=== PATIENT | female | born 1985 | race Caucasian/White ===

== ENCOUNTER 2020-09-17 20:55 | Emergency (ER) | payer OTHER, SELFPAY ==
--- NOTE | ~2020-09-17 | CT_ITS ---
EXAMINATION: CT abdomen pelvis w con INDICATION: Right lower quadrant pain TECHNIQUE: Computed tomographic images of the abdomen and pelvis were obtained after the administrati on of 100 cc of Omnipaque 350 intravenous contrast. The dose-length product (DLP) was 1456.79 mGy-cm. Automated exposure control and iterative reconstruction technique were employed. COMPARISON: None available FINDINGS: The lung bases are clear. The heart size is normal. Surgical changes in the stomach likely reflect gastric bypass surgery. The liver, spleen, pancreas, gallbladder, and adrenal glands are norm al. The kidneys are unremarkable. The appendix is not definitely identified however no right lower qu adrant inflammatory change is evident. No pathologically enlarged abdominal or pelvic lymph nodes are identified. There is no free intraperitoneal gas or evidence of bowel obstruction. An IUD is present in expected position. There are multiple small midline ventral hernias containing fat. IMPRESSION: 1. No CT correlate for the patient's symptoms. Reviewed, dictated and finalized at location A.
[2020-09-17 20:57] VITALS: BP 139/97; PULSE 91; RESP 22; TEMP 36.2; O2SAT 100
--- NOTE | 2020-09-17 21:19 | PC.NURSE ---
asked pt for urine sample. pt states she us unable to go at this time and is declining straight catheter.
[2020-09-17 21:37] LABS: Basophils Percent Auto 0.3 % (0.2-1.2); Eosinophils Absolute Auto 0.1 K/mm3 (0-0.3); Eosinophils Percent Auto 1.4 % (0-4.4); Hematocrit 31.8 % (37.0-47.0); Hemoglobin 9.1 g/dL (12.0-15.0); Immature Granulocyte Absolute 0.03 K/mm3 (0.00-0.031); Immature Granulocyte Percent A 0.3 % (0-0.5); Lymphocytes Absolute Auto 2.51 K/mm3 (0.9-3.2); Lymphocytes Percent Auto 26.9 % (18.3-44.2); Mean Corpuscular HGB Conc 28.6 g/dl (32-36); Mean Corpuscular Hemoglobin 20.9 pg (26-34); Mean Corpuscular Volume 72.9 fl (80-100); Mean Platelet Volume 10.3 fl (7.4-10.4); Monocytes Absolute Auto 0.6 K/mm3 (0.1-0.6); Monocytes Percent Auto 6.7 % (2.6-8.5); Neutrophils Percent Auto 64.4 % (45.5-73.1); Platelet Count Result 337 k/mm3 (150-375); Red Blood Count 4.36 M/mm3 (4.2-5.4); Red Cell Distribution Width 15.9 % (11.5-14.5); White Blood Count 9.3 K/mm3 (4.5-10.0)
[2020-09-17] MEDS: SODIUM CHLORIDE 0.9% IV 1,000 ML 999 ML IV CONT (21:45)
[2020-09-17] MEDS: FAMOTIDINE 20 MG/2 ML VIAL IV PUSH (21:46)
[2020-09-17 21:47] LABS: Alanine Aminotransferase 15 U/L (4-35); Alkaline Phosphatase 67 U/L (38-126); Anion Gap 9 mmol/L (8-16); Aspartate Amino Transferase 22 U/L (14-36); Bilirubin,Total 0.3 mg/dL (0.2-1.3); Blood Urea Nitrogen 18 mg/dL (7-17); Calcium 8.8 mg/dL (8.4-10.2); Carbon Dioxide 21 mmol/L (22-30); Chloride 111 mmol/L (98-107); Estimated CRCL calculation 103 ml/min; Estimated Glomerular Filt Rate > 60; Glucose 180 mg/dL (65-110); Lipase 140 U/L (23-300); Sodium 141 mmol/L (137-145)
[2020-09-17 22:01] LABS: Hypochromasia 1+ (NORMAL); Ovalocytes 1+ (NORMAL); Platelet Estimate Adequate (Adequate)
--- NOTE | 2020-09-17 22:01 | ED.GENADULT ---
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 for concern that it may be related to her IUD control she was told this was not the case continues to have the pain presents in no distress has not taken anything for symptom Related Data Home Medications Medication Instructions Recorded Confirmed albuterol sulfate INHALATION 09/17/20 buspirone mg 09/17/20 ferrous sulfate [FeroSul] mg 09/17/20 fluconazole 09/17/20 hydrocodone-acetaminophen 09/17/20 medroxyprogesterone mg IM 09/17/20 metformin mg 09/17/20 naproxen 09/17/20 topiramate 09/17/20 trazodone 09/17/20 venlafaxine mg PO 09/17/20 Allergies Allergy/AdvReac Type Severity Reaction Status Date / Time hydromorphone [From Dilaudid] AdvReac Nausea Verified 09/17/20 21:28 Review of Systems Review of Systems: All systems reviewed & are unremarkable except as noted in HPI and below PMFSH Social History Social History Smoking status: Never smoker Exam Narrative: GENERAL: Well-appearing, well-nourished, and in no acute distress. HEAD: Normocephalic, atraumatic. EYES: PERRLA and EOMI. ENT: Nares clear, no rhinorrhea or epistaxis. CHEST: Clear to auscultation. No respiratory distress. No wheezes rales or rhonchi HEART: Regular rate and rhythm. No murmur heard. Normal peripheral pulses. ABDOMEN: Soft, focal right lower quadrant tenderness to palpation no rebound or guarding no other abnormalities noted, nondistended, normal active bowel sounds. EXTREMITIES: Normal range of motion. No edema. SKIN: Warm, dry, no rash. NEURO: No focal deficits. Alert and oriented x3. Cranial nerves II through XII grossly intact PSYCH: Normal mood and affect. Course Course Emergency Course: Patient presented with right lower quadrant pain for 2 weeks no etiology for symptoms afebrile nontoxic-appearing no high risk changes in the evaluation will be discharged home with outpatient follow-up provided with reasons to return Vital Signs Vital signs: Vital Signs Temperature 97.1 F L 09/17/20 20:57 Pulse Rate 91 09/17/20 20:57 Respiratory Rate 22 H 09/17/20 20:57 Blood Pressure 139/97 H 09/17/20 20:57 Pulse Oximetry 100 09/17/20 20:57 Temperature 97.1 F L 09/17/20 20:57 Pulse Rate 66 09/17/20 22:38 Respiratory Rate 16 09/17/20 22:38 Blood Pressure 143/84 H 09/17/20 22:38 Pulse Oximetry 100 09/17/20 22:38 Medical Decision Making MDM Narrative Medical decision making narrative: Patient with right lower quadrant abdominal pain of uncertain etiology patient will be discharged home with primary care follow-up afebrile nontoxic-appearing no distress no concerning findings on the imaging or blood work felt appropriate for outpatient reevaluation Vital Signs Vital Signs: Vital Signs Temperature 97.1 F L 09/17/20 20:57 Pulse Rate 91 09/17/20 20:57 Respiratory Rate 22 H 09/17/20 20:57 Blood Pressure 139/97 H 09/17/20 20:57 Pulse Oximetry 100 09/17/20 20:57 Temperature 97.1 F L 09/17/20 20:57 Pulse Rate 66 09/17/20 22:38 Respiratory Rate 16 09/17/20 22:38 Blood Pressure 143/84 H 09/17/20 22:38 Pulse Oximetry 100 09/17/20 22:38 Lab Data Result diagrams: 09/17/20 21:30 09/17/20 21:30 Labs: Lab Results 09/17/20 09/17/20 09/17/20 Range/Units 21:30 21:30 22:51 WBC 9.3 (4.5-10.0) K/mm3 RBC 4.36 (4.2-5.4
[2020-09-17 22:38] VITALS: BP 143/84; PULSE 66; RESP 16; O2SAT 100
[2020-09-17 23:07] LABS: Add Urine Microscopic? YES; Appearance Urine Clear (Clear); Bacteria Urine Trace /hpf; Bilirubin Urine Negative (Negative); Blood Urine Negative (Negative); Color Urine Yellow (Yellow); Glucose Urine UA 1+ mg/dL (Negative); Ketones Urine Negative (Negative); Leukocyte Esterase Ur Negative LEU/UL (Negative); Mucus Urine Rare /lpf; Nitrate Urine Negative (Negative); Protein Urine Negative (Negative); RBC Urine 0-2 /hpf (0-2); Squamous Epithelial Cell Urine Occasional /hpf (Few); Urobilinogen Urine Negative mg/dL (<2.0); WBC Urine 0-3 /hpf
--- NOTE | 2020-09-17 23:36 | PC.NURSE ---
called to lab about urine test. lab states they will get the urine running.
[2020-09-17 23:38] LABS: Specific Grav Ur 1.035 (1.001-1.035)
[2020-09-18 00:23] VITALS: BP 132/68; PULSE 92; RESP 17; O2SAT 100
== END 2020-09-18 00:26 | disposition home or self-care (01) ==
PROVIDERS: Emergency Provider Emergency Medicine; PCP Family Medicine
DX: R10.31 Right lower quadrant pain (principal); Z97.5 Presence of (intrauterine) contraceptive device
CPT/HCPCS: 36415; 74177; 80053; 81001; 81025; 83690; 85025; 96361; 96365; 96375; 99284; J0131; J7030; Q9967

== ENCOUNTER 2020-10-13 18:25 | Emergency (ER) | payer OTHER, SELFPAY ==
[2020-10-13 18:34] VITALS: BP 131/85; PULSE 74; RESP 18; TEMP 36.5; O2SAT 100
--- NOTE | 2020-10-13 18:57 | ED.URI ---
HPI - URI/Sore Throat General Chief Complaint: Upper Respiratory Infection Stated Complaint: sore throat Time Seen by Provider: 10/13/20 18:57 Source: patient and RN notes reviewed Mode of arrival: ambulatory Limitations: no limitations History of Present Illness HPI Narrative: 35-year-old female presents to the [facility] with complaints of a sore throat. Patient states I think I have strep. . Denies fevers, nausea, vomiting or diarrhea. No treatment prior to arrival. Patient states that symptoms started on Tuesday, 3 days ago. States she should be taking medication for prediabetes, depression, bipolar. Related Data Home Medications Medication Instructions Recorded Confirmed buspirone mg 09/17/20 ferrous sulfate [FeroSul] mg 09/17/20 metformin mg 09/17/20 naproxen 09/17/20 topiramate 09/17/20 Allergies Allergy/AdvReac Type Severity Reaction Status Date / Time hydromorphone [From Dilaudid] AdvReac Nausea Verified 09/17/20 21:28 Review of Systems Review of Systems: All systems reviewed & are unremarkable except as noted in HPI and below Constitutional: Constitutional: Reports no additional constitutional complaints, Denies chills and Denies fever(s) Eyes: Eyes: Reports no additional eye complaints ENT: Reports as per HPI, Reports nasal congestion and Reports sore throat Cardiovascular: Cardiovascular: Reports no additional cardiovascular complaints and Denies chest pain Respiratory: Respiratory: Reports no additional respiratory complaints, Denies cough and Denies dyspnea Gastrointestinal: Gastrointestinal: Reports no additional gastrointestinal complaints, Denies abdominal pain, Denies nausea and Denies vomiting Musculoskeletal: Musculoskeletal: Reports no additional musculoskeletal complaints, Denies back pain and Denies muscle cramps Integumentary/Breasts: Skin/Breast: Reports system reviewed and no additional complaints, except as docu Neurologic: Reports system reviewed and no additional complaints, except as documented Psychiatric: Psychiatric: Reports no additional psychiatric complaints Allergic/Immunologic: Allergic/Immunologic: Reports no additional allergic/immunologic complaints [facility] Past Medical History Medical History (Updated 10/13/20 @ 19:08 by Yanci Conde) Depression Diabetes Surgical History Surgical History (Updated 10/13/20 @ 19:06 by Yanci Conde) H/O gastric bypass 2017 Social History Social History Smoking status: Never smoker Comments At the time of my signature, I reviewed and agree with the nursing past medical, surgical, social, and family history. There is no relevant family history pertinent to the patient complaint. Exam Const: General: healthy appearing, no acute distress and alert Nutritional Appearance: well nourished and obese morbidly obese Orientation/consciousness: patient oriented x3 Limitations: no limitations HENMT: Head: normal to inspection Eyes: Conjunctivae: conjunctivae normal Pupils: Equal, round and reactive pupils present Neck: Neck: normal visual inspection, no lymphadenopathy and no meningeal signs Chest: Chest palpation & inspection: normal inspection of the chest Resp: Effort & Inspection: normal respiratory effort Auscultation: clear to auscultation bilaterally Cardio: Rate: regular rate Rhythm: regular rhythm GI: GI Palp: Yes Soft to palpation and No Tenderness to palpation present (GI) : General: Yes no CVA tenderness Skin: General skin exam: normal color Neuro: General: patient oriented x3 Course Course Emergency Course: Discharge instructions reviewed with patient, as well as provided in writing per nursing staff. The instructions also include specific and strict return/GO TO THE ER as well as f/u information. All questions have been answered, and the patient deny any further questions with discharge and discharge plan. Vital Signs Vital s
== END 2020-10-13 19:17 | disposition home or self-care (01) ==
PROVIDERS: Emergency Provider Nurse Practitioner
DX: R09.82 Postnasal drip (principal); J02.9 Acute pharyngitis, unspecified; E11.9 Type 2 diabetes mellitus without complications
CPT/HCPCS: 87081; 87880; 99213; G0463

== ENCOUNTER 2020-12-22 18:19 | Emergency (ER) | payer OTHER, SELFPAY ==
[2020-12-22 18:29] VITALS: BP 131/72; PULSE 91; RESP 18; TEMP 36.5; O2SAT 100
--- NOTE | 2020-12-22 19:43 | ED.EAR ---
HPI - Ear Problem General Chief complaint: Upper Respiratory Infection Stated complaint: Ear Pain,Sore Throat History of Present Illness HPI Narrative: This is a 35-year-old that presents to urgent care complaining of sore throat, earache patient denies any fever nausea and/or vomiting but states that she has not been feeling well states that she has been gargling warm salt water denies any shortness of breath Related Data Home Medications Medication Instructions Recorded Confirmed buspirone mg 09/17/20 ferrous sulfate [FeroSul] mg 09/17/20 metformin mg 09/17/20 naproxen 09/17/20 topiramate 09/17/20 Allergies Allergy/AdvReac Type Severity Reaction Status Date / Time hydromorphone [From Dilaudid] AdvReac Nausea Verified 09/17/20 21:28 Review of Systems Review of Systems: Sore throat, earache All systems reviewed & are unremarkable except as noted in HPI and below PMFSH Past Medical History Medical History (Updated 12/22/20 @ 19:44 by Gualberto Mishra NP) Depression Diabetes Surgical History Surgical History (Updated 10/13/20 @ 19:06 by Yanci Conde) H/O gastric bypass 2017 Social History Social History Smoking status: Never smoker Comments At time as signature, I have reviewed and agree with nursing past medical, social, surgical and family history. Please see nursing chart for further information. There is no relevant family history pertinent to the presenting complaint. Exam Narrative: GENERAL:Well-appearing, well-nourished, and in no acute distress. HEAD:Normocephalic, EYES: PERRLA ENT: Nares clear, no rhinorrhea . Mucous membranes moist. Pharyngeal erythema right TM bulging with erythema NECK: Supple. CHEST: Clear to auscultation. No respiratory distress. HEART: Regular rate and rhythm. ABDOMEN: Soft, nontender, nondistended, normal active bowel sounds. EXTREMITIES: Normal range of motion. No edema. SKIN: Warm, dry, no rash. NEURO: No focal deficits. Alert and oriented x3. Course Vital Signs Vital signs: Vital Signs Temperature 97.7 F 12/22/20 18:29 Pulse Rate 91 12/22/20 18:29 Respiratory Rate 18 11/01/21 18:29 Blood Pressure 131/72 11/01/21 18:29 Pulse Oximetry 100 12/22/20 18:29 Temperature 97.7 F 12/22/20 18:29 Pulse Rate 91 12/22/20 18:29 Respiratory Rate 18 12/22/20 18:29 Blood Pressure 131/72 12/22/20 18:29 Pulse Oximetry 100 12/22/20 18:29 Medical Decision Making Vital Signs Vital Signs: Vital Signs Temperature 97.7 F 12/22/20 18:29 Pulse Rate 91 12/22/20 18:29 Respiratory Rate 18 12/22/20 18:29 Blood Pressure 131/72 12/22/20 18:29 Pulse Oximetry 100 12/22/20 18:29 Temperature 97.7 F 12/22/20 18:29 Pulse Rate 91 12/22/20 18:29 Respiratory Rate 18 12/22/20 18:29 Blood Pressure 131/72 12/22/20 18:29 Pulse Oximetry 100 12/22/20 18:29 Lab Data Labs: Strep Screen Presumptive Negative *(Reference Range: Negative)* Discharge Plan Discharge Clinical Impression: Otitis media Qualifiers: Otitis media type: unspecified Chronicity: acute Qualified Code(s): H66.90 - Otitis media, unspecified, unspecified ear Patient Disposition: Home, Self-Care Condition: Stable Instructions: Antibiotic Form, Ear Infection (ED), Earache (ED) Prescriptions: New amoxicillin 500 mg tablet 500 mg PO Q12H Qty: 20 RF: 0 cetirizine [Zyrtec] 10 mg tablet 10 mg PO DAILY PRN (Reason: allergy symptoms) Qty: 30 RF: 0 No Action metformin 500 mg tablet RF: 0 ferrous sulfate [FeroSul] 325 mg (65 mg iron) tablet RF: 0 buspirone 7.5 mg tablet RF: 0 naproxen 500 mg tablet RF: 0 topiramate 50 mg tablet RF: 0 Follow-up/Referrals: PHYSICIAN NOT ON STAFF,NONSTAFF [Primary Care Provider] - Stand Alone Forms: Work/Scho
== END 2020-12-22 20:00 | disposition home or self-care (01) ==
PROVIDERS: Emergency Provider Nurse Practitioner Family
DX: H66.91 Otitis media, unspecified, right ear (principal); F32.9 Major depressive disorder, single episode, unspecified; E11.9 Type 2 diabetes mellitus without complications
CPT/HCPCS: 87081; 87880; 99213; G0463

== ENCOUNTER 2021-05-24 08:56 | Emergency (ER) | payer OTHER, SELFPAY ==
--- NOTE | ~2021-05-24 | XR_ITS ---
EXAMINATION: XR ankle LT min 3V DATE: 05/24/2021 09:13 INDICATION: Left ankle pain TECHNIQUE: Anteroposterior, lateral, mortise, and additional oblique view of the ankle were obtained. COMPARISON: None. FINDINGS: There is no fracture, dislocation, or subluxation. The bones, soft tissues, and joint space s are normal. IMPRESSION: 1. No acute osseous abnormality. Reviewed, dictated and finalized at location A.
[2021-05-24 09:01] VITALS: BP 134/80; PULSE 95; RESP 16; TEMP 36.6; O2SAT 100
--- NOTE | 2021-05-24 09:39 | ED.LOWEXIN ---
HPI - Extremity Injury (Lower) General Chief Complaint: Extremity Injury, Lower <AYANA [place] Last Filed: 05/24/21 09:54> Stated Complaint: possible fractured left ankle <Elda Rice PA-C - Last Filed: 05/24/21 09:54> Time Seen by Provider: 05/24/21 09:08 <AYANA [place] Last Filed: 05/24/21 09:54> History of Present Illness HPI Narrative: Patient is a 36-year-old female who presents after getting hit in her left ankle by a wheelchair yesterday while at work. 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 She denies further injuries, and did not sustain a fall. The ankle did not twist forcefully. Patient was able to walk after the incident, but states the pain increased today making it difficult to ambulate. She has not been trying anything for the pain besides keeping her ankle in an [place] wrap. She denies numbness, tingling, knee pain, hip pain, or other injury sustained in the incident. <AYANA Canada Last Filed: 05/24/21 09:54> Related Data Home Medications: Home Medications Medication Instructions Recorded Confirmed buspirone mg 09/17/20 ferrous sulfate [FeroSul] mg 09/17/20 metformin mg 09/17/20 naproxen 09/17/20 topiramate 09/17/20 <AYANA [place] Last Filed: 05/24/21 09:54> Allergies/Adverse Reactions: Allergies Allergy/AdvReac Type Severity Reaction Status Date / Time hydromorphone [From Dilaudid] AdvReac Nausea Verified 05/24/21 09:06 <AYANA [place] Last Filed: 05/24/21 09:54> Review of Systems Review of Systems: Gen.: Denies fevers or chills Eyes: Denies eye pain or visual change ENT: Denies congestion Respiratory: Denies shortness of breath or cough CV: Denies chest pain or palpitations GI: Denies abdominal pain nausea, emesis or diarrhea denies burning, urgency, frequency or hematuria Musculoskeletal: Reports left ankle pain. Denies back pain or muscle pain Neuro: Denies numbness, tingling, weakness or focal weakness Skin: Denies rash Except as documented, all other systems reviewed and negative <Elda Rice PA-C - Last Filed: 05/24/21 09:54> [facility] Past Medical History Medical History: Medical History Depression Diabetes <Elda Rice PA-C - Last Filed: 05/24/21 09:54> Surgical History Surgical History: Surgical History H/O gastric bypass 2016 <Elda Rice PA-C - Last Filed: 05/24/21 09:54> Social History Social History: Social History Smoking status: Never smoker <Elda Rice PA-C - Last Filed: 05/24/21 09:54> Exam Narrative: Gen: Alert oriented pleasant female. Eyes: EOMI, no icterus Pulm: Respirations even and unlabored, symmetric thorax expansion, no audible stridor or visible cyanosis CV: Regular rate per telemetry GI: No distension, no voluntary/involuntary guarding Neuro: AOx4, moves all extremities without apparent difficulty or weakness, follows commands MSK: Patient has tenderness to palpation over the left lateral malleolus. She has full range of motion in her left foot, toes, and ankle although it is painful. She has 2+ DP and PT pulses bilaterally. sensation is intact. No edema of the ankle. Full range of motion in left knee with no bony tenderness. 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
== END 2021-05-24 10:11 | disposition home or self-care (01) ==
PROVIDERS: Emergency Provider Emergency Medicine; PCP Family Medicine
DX: S99.912A Unspecified injury of left ankle, initial encounter (principal); E11.9 Type 2 diabetes mellitus without complications; F32.A Depression, unspecified; Z79.84 Long term (current) use of oral hypoglycemic drugs; Z98.84 Bariatric surgery status; W22.8XXA Striking against or struck by other objects, initial encounter
CPT/HCPCS: 73610; 99283

== ENCOUNTER 2021-05-30 17:51 | Emergency (ER) | payer OTHER, SELFPAY ==
[2021-05-30 17:52] VITALS: BP 140/101; PULSE 86; RESP 16; TEMP 36.2; O2SAT 100
[2021-05-30 18:24] LABS: Basophils Percent Auto 0.3 % (0.2-1.2); Eosinophils Absolute Auto 0.1 K/mm3 (0-0.3); Eosinophils Percent Auto 1.4 % (0-4.4); Hematocrit 32.7 % (37.0-47.0); Hemoglobin 9.1 g/dL (12.0-15.0); Immature Granulocyte Absolute 0.03 K/mm3 (0.00-0.031); Immature Granulocyte Percent A 0.3 % (0-0.5); Lymphocytes Absolute Auto 2.75 K/mm3 (0.9-3.2); Lymphocytes Percent Auto 31.1 % (18.3-44.2); Mean Corpuscular HGB Conc 27.8 g/dl (32-36); Mean Corpuscular Hemoglobin 19.9 pg (26-34); Mean Corpuscular Volume 71.4 fl (80-100); Mean Platelet Volume 9.9 fl (7.4-10.4); Monocytes Absolute Auto 0.6 K/mm3 (0.1-0.6); Monocytes Percent Auto 6.7 % (2.6-8.5); Neutrophils Absolute Auto 5.3 K/mm3 (1.3-6.7); Neutrophils Percent Auto 60.2 % (45.5-73.1); Platelet Count Result 346 k/mm3 (150-375); Red Blood Count 4.58 M/mm3 (4.2-5.4); Red Cell Distribution Width 17.2 % (11.5-14.5); White Blood Count 8.9 K/mm3 (4.5-10.0)
--- NOTE | 2021-05-30 18:32 | ED.GENADULT ---
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 She does not know the HIV status of the patient. She washed the wound out and came to the ER for evaluation. She was stuck on her right third distally. Patient reports she is up-to-date on her hepatitis B vaccinations Related Data Home Medications Medication Instructions Recorded Confirmed buspirone mg 09/17/20 ferrous sulfate [FeroSul] mg 09/17/20 metformin mg 09/17/20 topiramate 09/17/20 Allergies Allergy/AdvReac Type Severity Reaction Status Date / Time hydromorphone [From Dilaudid] AdvReac Nausea Verified 05/30/21 17:55 Review of Systems Review of Systems: CONSTITUTIONAL: Denies fever, chills, or sweats. EYES: Denies visual changes, redness, or discharge. ENT: Denies rhinorrhea, congestion, sore throat, or otalgia. CARDIOVASCULAR: Denies chest pain, palpitations, or edema. RESPIRATORY: Denies cough or dyspnea. GASTROINTESTINAL: Denies abdominal pain, nausea, vomiting, or diarrhea. GENITOURINARY: Denies dysuria or hematuria. SKIN: Denies rash or itching. MUSCULOSKELETAL: Denies back pain, joint pain, or myalgia. NEUROLOGIC: Denies headache, numbness, dizziness, or weakness. PSYCHIATRIC: Denies anxiety or depression. All systems reviewed & are unremarkable except as noted in HPI and below PMFSH Past Medical History Medical History Depression Diabetes Surgical History Surgical History H/O gastric bypass 2017 Social History Social History Smoking status: Never smoker Exam Narrative: GENERAL: Well-appearing, well-nourished, and in no acute distress. HEAD: Normocephalic, atraumatic. EYES: PERRLA and EOMI. ENT: Nares clear, no rhinorrhea or epistaxis. Mucous membranes moist. NECK: Supple. No masses. No JVD EXTREMITIES: Normal range of motion. No edema. Open wounds no active bleeding on exam of the hand SKIN: Warm, dry, no rash. NEURO: No focal deficits. Alert and oriented x3. PSYCH: Normal mood and affect. Course Reevaluation(s) Reevaluation #1: Patient does not want to wait for the results of her lab and will follow up on them with her primary care provider. This patient only wants postsurgical prophylaxis this is a safe and reasonable plan. Date: 05/30/21 Time: 19:01 Vital Signs Vital signs: Vital Signs Temperature 36.2 C L 05/30/21 17:52 Pulse Rate 86 05/30/21 17:52 Respiratory Rate 16 05/30/21 17:52 Blood Pressure 140/101 H 05/30/21 17:52 Pulse Oximetry 100 05/30/21 17:52 Temperature 36.2 C L 05/30/21 17:52 Pulse Rate 86 05/30/21 17:52 Respiratory Rate 16 05/30/21 17:52 Blood Pressure 140/101 H 05/30/21 17:52 Pulse Oximetry 100 05/30/21 17:52 Medical Decision Making MDM Narrative Medical decision making narrative: H&P as above, vss, pt looks clinically well, exam reassuring, labs clinically unremarkable, additional labs/img considered. With the postexposure prophylaxis and patient was like to start postocclusion prophylaxis for HIV. suspect accidental needlestick patient is likely low risk for transmission however she was started on postcoital prophylaxis at her request she was instructed to follow-up with primary care doctor for continued outpatient testing. Vital Signs Vital Signs: Vital Signs Temperature 36.2 C L 05/30/21 17:52 Pulse Rate 86 05/30/21 17:52 Respiratory Rate 16 05/30/21 17:52 Blood Pressure 140/101 H 05/30/21 17:52 Pulse Oximetry 100 05/30/21 17:52 Temperature
[2021-05-30 18:33] LABS: Alanine Aminotransferase 13 U/L (4-35); Albumin Level 4.2 g/dL (3.5-5.1); Alkaline Phosphatase 80 U/L (38-126); Aspartate Amino Transferase 22 U/L (14-36); Bilirubin,Total 0.2 mg/dL (0.2-1.3)
[2021-05-30 18:51] LABS: Anion Gap 5 mmol/L (8-16); Blood Urea Nitrogen 16 mg/dL (7-17); Calcium 8.5 mg/dL (8.4-10.2); Carbon Dioxide 27 mmol/L (22-30); Chloride 102 mmol/L (98-107); Estimated CRCL calculation 114 ml/min; Estimated Glomerular Filt Rate > 60; Glucose 156 mg/dL (65-110); Potassium 3.9 mmol/L (3.4-5.0); Sodium 134 mmol/L (137-145)
[2021-05-30 18:52] LABS: Anisocytosis 1+ (NORMAL); Hypochromasia 1+ (NORMAL); Platelet Estimate Adequate (Adequate)
[2021-05-30 18:54] LABS: Stomatocytes 1+ (NORMAL)
[2021-05-30 19:14] LABS: HIV 1/2 Ab P24 Ag Result Negative (Negative)
[2021-05-30 19:30] LABS: Hepatitis B Surface Antigen Negative (Negative)
[2021-05-30 19:36] LABS: HAV RESULT Negative (Negative); Hepatitis B Core IgM Result Negative (Negative)
[2021-05-30 19:48] LABS: Hepatitis B Surface Anti Res Indeterminate; Hepatitis C Virus Antibody Negative (Negative)
[2021-05-30 19:50] LABS: Hepatitis A Antibody IgM 0.01 s/c; Hepatitis B Surface Antigen 0.15 S/C
[2021-05-30 19:51] LABS: Hepatitis B Core Antibody, IgM 0.02 S/C; Hepatitis C Virus Antibody 0.03 S/C
[2021-06-03 12:24] LABS: Hepatitis C Viral RNA PCR <15 IU/mL
[2021-06-04 04:51] LABS: Hepatitis B Core Ab Total Nonreactive (Nonreactive)
== END 2021-05-30 19:06 | disposition home or self-care (01) ==
PROVIDERS: Emergency Provider Emergency Medicine; PCP Family Medicine
DX: S61.232A Puncture wound without foreign body of right middle finger without damage to nail, initial encounter (principal); E11.9 Type 2 diabetes mellitus without complications; F32.A Depression, unspecified; Z98.84 Bariatric surgery status; Z79.84 Long term (current) use of oral hypoglycemic drugs; W46.1XXA Contact with contaminated hypodermic needle, initial encounter
CPT/HCPCS: 36415; 80048; 80076; 85025; 86703; 86704; 86705; 86706; 86709; 86803; 87340; 87522; 99283; G0432

== ENCOUNTER 2021-08-31 09:18 | Emergency (ER) | payer OTHER, SELFPAY ==
--- NOTE | ~2021-08-31 | CT_ITS ---
EXAMINATION: CT abdomen pelvis w con DATE: 08/31/2021 12:17 INDICATION: Low abdominal pain. Nausea. Recent hysterectomy. TECHNIQUE: Computed tomography (CT) of the abdomen and pelvis was performed with 100 mL Omnipaque 300 intravenous contrast. Automated exposure control and iterative reconstruction technique were employe d. The dose-length product was 1481.25 mGy-cm. COMPARISON: CT abdomen and pelvis 09/17/2020 FINDINGS: The visualized portions of the lung bases are clear without pneumonia or pleural effusion. The heart size is normal. No pericardial effusion. The liver, gallbladder, spleen, pancreas, adrenal glands, and kidneys are normal. There are surgical changes of the stomach. There are no dilated loops of bowel. The appendix is normal. There are no pathologically enlarged lymph nodes. There is no free intraperitoneal fluid. There are multiple ventral hernias containing fat. The ovaries are normal. Th ere is fat stranding in the pelvis, consistent with expected changes of recent hysterectomy. There is mild thoracolumbar spondylosis. IMPRESSION: 1. Ventral hernias containing fat. Reviewed, dictated and finalized at location A.
[2021-08-31 09:20] VITALS: BP 128/80; PULSE 88; RESP 14; TEMP 36.3; O2SAT 100
[2021-08-31 09:26] VITALS: BP 144/66; PULSE 73; TEMP 36.3; O2SAT 100
[2021-08-31 10:16] LABS: Basophils Percent Auto 0.4 % (0.2-1.2); Eosinophils Absolute Auto 0.2 K/mm3 (0-0.3); Eosinophils Percent Auto 2.1 % (0-4.4); Hematocrit 30.5 % (37.0-47.0); Hemoglobin 8.3 g/dL (12.0-15.0); Immature Granulocyte Absolute 0.04 K/mm3 (0.00-0.031); Immature Granulocyte Percent A 0.5 % (0-0.5); Lymphocytes Absolute Auto 1.71 K/mm3 (0.9-3.2); Lymphocytes Percent Auto 21.9 % (18.3-44.2); Mean Corpuscular HGB Conc 27.2 g/dl (32-36); Mean Corpuscular Hemoglobin 19.4 pg (26-34); Mean Corpuscular Volume 71.3 fl (80-100); Mean Platelet Volume 10.1 fl (7.4-10.4); Monocytes Absolute Auto 0.5 K/mm3 (0.1-0.6); Monocytes Percent Auto 6.2 % (2.6-8.5); Neutrophils Absolute Auto 5.4 K/mm3 (1.3-6.7); Neutrophils Percent Auto 68.9 % (45.5-73.1); Platelet Count Result 366 k/mm3 (150-375); Red Blood Count 4.28 M/mm3 (4.2-5.4); Red Cell Distribution Width 17.8 % (11.5-14.5); White Blood Count 7.8 K/mm3 (4.5-10.0)
[2021-08-31 10:26] LABS: Alanine Aminotransferase 13 U/L (6-35); Albumin Level 3.9 g/dL (3.5-5.1); Alkaline Phosphatase 74 U/L (38-126); Anion Gap 5 mmol/L (8-16); Aspartate Amino Transferase 18 U/L (14-36); Bilirubin,Total 0.2 mg/dL (0.2-1.3); Blood Urea Nitrogen 14 mg/dL (7-17); Calcium 8.4 mg/dL (8.4-10.2); Carbon Dioxide 24 mmol/L (22-30); Chloride 107 mmol/L (98-107); Estimated CRCL calculation 115 ml/min; Estimated Glomerular Filt Rate > 60; Glucose 223 mg/dL (65-110); Lipase 69 U/L (23-300); Sodium 136 mmol/L (137-145)
[2021-08-31 10:29] LABS: Appearance Urine Clear (Clear); Bilirubin Urine Negative (Negative); Blood Urine 2+ (Negative); Color Urine Yellow (Yellow); Glucose Urine UA 1+ mg/dL (Negative); Ketones Urine Negative (Negative); Leukocyte Esterase Ur Negative LEU/UL (Negative); Nitrate Urine Negative (Negative); Protein Urine Negative (Negative); Specific Grav Ur 1.025 (1.001-1.035)
[2021-08-31 10:34] LABS: Mucus Urine Rare /lpf; RBC Urine 0-2 /hpf (0-2); Squamous Epithelial Cell Urine Many /hpf (Few)
[2021-08-31 10:37] LABS: Add Urine Microscopic? YES
[2021-08-31 10:50] LABS: Anisocytosis 1+ (NORMAL); Hypochromasia 1+ (NORMAL); Poikilocytosis 1+ (NORMAL)
[2021-08-31 10:52] LABS: Platelet Estimate Adequate (Adequate)
[2021-08-31] MEDS: SODIUM CHLORIDE 0.9% IV 1,000 ML 999 ML IV CONT (12:44)
--- NOTE | 2021-08-31 13:05 | ED.ABDPAIN ---
HPI - Abdominal Pain General Chief Complaint: Abdominal Pain <Jo Campbell PA-C - Last Filed: 08/31/21 19:27> Stated Complaint: abd pain, s/p hysterectomy <Jo Campbell PA-C - Last Filed: 08/31/21 19:27> Time Seen by Provider: 08/31/21 09:48 <AYANA Tipton Last Filed: 08/31/21 19:27> Source: patient <AYANA Tipton Last Filed: 08/31/21 19:27> Mode of arrival: ambulatory <AYANA Tipton Last Filed: 08/31/21 19:27> Limitations: no limitations <AYANA Tipton Last Filed: 08/31/21 19:27> History of Present Illness HPI narrative: Patient is a 36-year-old female who presents the ED with report of lower abdominal pain. Patient reports she had a laparoscopic hysterectomy performed last , by an DIE BARBER in [place], [place]. She states she was seen there because he would take her insurance. She has had some intermittent abdominal pain since the surgery and has been taking [place] and tramadol at home. Today, while at work, patient's pain became worse, which prompted her to come to the ED. She has not taken anything for pain today. She denies any fever, chills, nausea, vomiting, vaginal bleeding, dysuria, hematuria, rectal bleeding. Patient notes she has been slightly constipated since taking the pain medications, last had bowel movement yesterday, but did have to strain slightly. She has not tried to call her surgeon. <Jo Campbell PA-C - Last Filed: 08/31/21 19:27> Related Data Home Medications: Home Medications Medication Instructions Recorded Confirmed buspirone 7.5 mg tablet mg 09/17/20 ferrous sulfate 325 mg (65 mg mg 09/17/20 iron) tablet (FeroSul) metformin 500 mg tablet mg 09/17/20 topiramate 50 mg tablet 09/17/20 hydrocodone 5 mg-acetaminophen 325 tablet PRN Pain 08/31/21 mg tablet tramadol 50 mg tablet tablet PRN Pain 08/31/21 <Jo Campbell PA-C - Last Filed: 08/31/21 19:27> Allergies/Adverse Reactions: Allergies Allergy/AdvReac Type Severity Reaction Status Date / Time hydromorphone [From Dilaudid] AdvReac Nausea Verified 08/31/21 09:21 <Jo Campbell PA-C - Last Filed: 08/31/21 19:27> Review of Systems Review of Systems: CONSTITUTIONAL: Denies fever, chills, or sweats. CARDIOVASCULAR: Denies chest pain. RESPIRATORY: Denies cough or dyspnea. GASTROINTESTINAL: Reports lower ABD pain, constipation. Denies rectal bleeding, nausea, vomiting, or diarrhea. GENITOURINARY: Denies vaginal bleeding, dysuria, or hematuria. SKIN: Denies rash or itching. MUSCULOSKELETAL: Denies back pain, joint pain, or myalgia. NEUROLOGIC: Denies headache, numbness, or weakness. <Jo Campbell PA-C - Last Filed: 08/31/21 19:27> All systems reviewed & are unremarkable except as noted in HPI and below <Jo Campbell PA-C - Last Filed: 08/31/21 19:27> [facility] Past Medical History Medical History: Medical History Depression Diabetes <Jo Campbell PA-C - Last Filed: 08/31/21 19:27> Surgical History Surgical History: Surgical History (Updated 08/31/21 @ 13:32 by Jo Campbell PA-C) H/O gastric bypass 2017 History of hysterectomy <Jo Campbell PA-C - Last Filed: 08/31/21 19:27> Social History Social History: Social History Smoking status: Never smoker <Jo Campbell PA-C - Last Filed: 08/31/21 19:27> Exam Narrative: GENERAL: Well appearing, morbidly obese, non-toxic, in no acute distress. HEAD: Normocephalic, atraumatic. NECK: Supple. No adenopathy, no masses. RESPIRATORY: Airway patent, respirations nonlabored. Clear to auscultation bilaterally, no rales, rhonchi, wheezing. CARDIOVASCULAR: Regular rate and rhythm without murmurs, rubs, or gallops. Peripheral pulses 2+ and equal bilaterally. ABDOMINAL: Soft, diffuse tenderness to palpation, worst in epigastric region
== END 2021-08-31 14:38 | disposition home or self-care (01) ==
PROVIDERS: Emergency Provider Emergency Medicine; PCP Family Medicine
DX: G89.18 Other acute postprocedural pain (principal); R10.30 Lower abdominal pain, unspecified; E11.9 Type 2 diabetes mellitus without complications; F32.A Depression, unspecified; Z98.84 Bariatric surgery status; Z90.710 Acquired absence of both cervix and uterus; K43.9 Ventral hernia without obstruction or gangrene; Z79.84 Long term (current) use of oral hypoglycemic drugs
CPT/HCPCS: 36415; 74177; 80053; 81001; 83690; 85025; 87077; 87086; 87088; 96365; 99284; J0131; J7030; Q9967

== ENCOUNTER 2021-09-12 10:31 | Emergency (ER) | payer OTHER, SELFPAY ==
--- NOTE | ~2021-09-12 | CT_ITS ---
EXAMINATION: CT abdomen pelvis w con DATE: 09/12/2021 12:06 INDICATION: Umbilical wound dehiscence. Cellulitis status post recent hysterectomy. TECHNIQUE: Computed tomography (CT) of the abdomen and pelvis was performed with 100 cc Omnipaque 300 intravenous contrast. The dose-length product was 1454.42 mGy-cm. COMPARISON: CT dated 08/31/2021. FINDINGS: Lung bases are unremarkable. Heart size normal. No significant pleural or pericardial effus ion. There are changes of previous gastric bypass. No significant vascular abnormality. No lymphadeno clotilde. There is fat stranding in the pelvis, consistent with recent hysterectomy. There are mild infl ammatory changes of the anterior abdominal wall with a small fluid collection extending to the skin s urface measuring up to 2.3 cm greatest dimension. Bladder wall is decompressed. Nonobstructive bowel gas pattern. No free air. No acute osseous abnormality. suspicious for abscess. IMPRESSION: 1. Small fluid collection anterior abdominal wall to the left of midline extending to a fistulous tra ct communicating with the skin surface, suspicious for abscess measuring up to 2.3 cm. 2: Postoperative changes in the pelvis, consistent with recent surgery. Reviewed, dictated and finalized at location A. IMPRESSION: 1. Small fluid collection anterior abdominal wall to the left of midline extend ing to a fistulous tract communicating with the skin surface, suspicious for ab scess measuring up to 2.3 cm. 2: Postoperative changes in the pelvis, consistent with recent surgery.
[2021-09-12 10:47] VITALS: BP 153/77; PULSE 92; RESP 16; TEMP 36.6; O2SAT 100
--- NOTE | 2021-09-12 11:14 | ED.GENADULT ---
HPI - General Adult General Chief complaint: Wound/Laceration Stated complaint: infection at hysterectomy incision site, abd pain History of Present Illness HPI narrative: The patient is a 36-year-old woman with a history of uterine adenomas, who underwent laparoscopic-assisted hysterectomy on 08/27/2021. She saw her associate material handler on 09/07/2021. She did have mild dehiscence of the umbilical port site which opened up further during her associate material handler's examination. Her associate material handler told her to keep an eye on the wound, and to keep it covered and dry. She is currently not on antibiotics. She has had increased redness from the right lateral abdominal wall port site which is a new finding since 09/07/2021, and the abdominal umbilical wound is similar and has not improved. It is still moist with no purulent drainage. No other source of abdominal pain. No fevers or diaphoresis She reports some chills. No chest pain or back pain or dysuria or urinary urgency or frequency. No upper respiratory tract infection symptom Related Data Home Medications Medication Instructions Recorded Confirmed buspirone 7.5 mg tablet mg 09/17/20 ferrous sulfate 325 mg (65 mg mg 09/17/20 iron) tablet (FeroSul) metformin 500 mg tablet mg 09/17/20 topiramate 50 mg tablet 09/17/20 hydrocodone 5 mg-acetaminophen 325 tablet PRN Pain 08/31/21 mg tablet tramadol 50 mg tablet tablet PRN Pain 08/31/21 Allergies Allergy/AdvReac Type Severity Reaction Status Date / Time povidone-iodine Allergy Rash Verified 09/12/21 10:54 [From Betadine] hydromorphone [From Dilaudid] AdvReac Vomiting Verified 09/12/21 10:54 Review of Systems Review of Systems: All systems reviewed & are unremarkable except as noted in HPI and below Constitutional: Constitutional: Reports no additional constitutional complaints, Denies anorexia, Denies body ache(s), Reports chills, Denies excessive sweating, Denies fatigue, Denies fever(s), Denies frequent falls, Denies headache(s), Denies malaise and Denies poor appetite Eyes: Eyes: Reports no additional eye complaints, Denies blurry vision, Denies change in vision, Denies irritation, Denies itchy eyes and Denies photophobia ENT: Reports system reviewed and no additional complaints, except as documented, Reports Normal hearing present, Denies change in voice, Denies dysphagia, Denies vertigo, Denies dizziness, Denies ear discharge, Denies headache(s), Denies hearing loss, Denies hoarseness, Denies nasal congestion, Denies neck pain, Denies sinus pressure, Denies sore throat and Denies throat swelling Cardiovascular: Cardiovascular: Reports no additional cardiovascular complaints, Denies chest pain, Denies syncope, Denies rapid heart rate, Denies irregular heart rhythm, Denies leg edema, Denies dyspnea and Denies slow heart rate Respiratory: Respiratory: Reports no additional respiratory complaints, Denies cough, Denies dyspnea, Denies stridor and Denies wheezing Gastrointestinal: Gastrointestinal: Reports no additional gastrointestinal complaints, Denies abdominal pain, Denies melena, Denies hematochezia, Denies dysphagia, Denies diarrhea, Denies nausea and Denies vomiting Genitourinary: Genitourinary: Denies hematuria, Denies urinary frequency, Denies dysuria, Denies flank pain and Denies urinary urgency Musculoskeletal: Musculoskeletal: Reports no additional musculoskeletal complaints, Denies abnormal gait, Denies back pain, Denies myalgias, Denies arthralgias, Denies joint swelling, Denies limited range of motion, Denies muscle cramps, Denies muscle weakness, Denies neck pain and Denies numbness Integumentary/Breasts: Skin/Breast: Reports system reviewed and no additional complaints, except as docu, Denies breast pain, Reports change in pigmentation (of the right lateral port site of the abdomen), Denies pruritus, Reports erythema (cellulitis of the right lateral port site) and Reports wounds (umbilical wound dehiscence without puru
[2021-09-12 11:31] LABS: Basophils Absolute Auto 0.04 K/mm3 (0.00-0.10); Basophils Percent Auto 0.4 % (0.0-1.0); Eosinophils Absolute Auto 0.22 K/mm3 (0.02-0.50); Hematocrit 28.8 % (35.0-49.0); Immature Granulocyte Absolute 0.03 K/mm3 (0.00-0.00); Immature Granulocyte Percent A 0.3 % (0.0-0.0); Lymphocytes Absolute Auto 1.69 K/mm3 (1.10-4.50); Lymphocytes Percent Auto 15.6 % (18.0-42.0); Mean Corpuscular HGB Conc 27.8 g/dL (32.0-36.0); Mean Corpuscular Hemoglobin 19.7 pg (27.0-31.0); Mean Corpuscular Volume 70.9 fL (78.0-102.0); Mean Platelet Volume 10.4 fl (9.2-11.8); Monocytes Absolute Auto 0.95 K/mm3 (0.10-0.90); Monocytes Percent Auto 8.8 % (2.0-11.0); Neutrophils Absolute Auto 7.9 K/mm3 (1.7-7.2); Neutrophils Percent Auto 72.9 % (50.0-70.0); Platelet Count Result 346 K/mm3 (150-420); Red Blood Count 4.06 M/mm3 (4.20-5.40); Red Cell Distribution Width 17.8 % (11.6-14.4); White Blood Count 10.9 K/mm3 (4.8-10.8)
[2021-09-12 11:32] LABS: Add Urine Microscopic? YES; Appearance Urine Slightly Cloudy (Clear); Bilirubin Urine Negative (Negative); Blood Urine 3+ (Negative); Color Urine Brown (Yellow); Glucose Urine UA Trace (Negative); Ketones Urine Negative (Negative); Leukocyte Esterase Ur 2+ LEU/UL (Negative); Nitrate Urine Negative (Negative); Protein Urine Trace (Negative); Specific Grav Ur >= 1.030 (1.010-1.020)
[2021-09-12 11:37] LABS: Bacteria Urine 1+ /hpf; Squamous Epithelial Cell Urine Moderate /hpf (Few); WBC Urine 21-30 /hpf (0-3)
[2021-09-12 11:38] LABS: Mucus Urine Moderate /lpf
[2021-09-12 11:47] LABS: Lactic Acid Reflex 1.2 mmol/L (0.4-2.0)
[2021-09-12 11:50] LABS: Alanine Aminotransferase 13 U/L (14-59); Alkaline Phosphatase 86 U/L (46-116); Anion Gap 8 mmol/L (8-16); Aspartate Amino Transferase < 10 U/L (15-37); Bilirubin,Total 0.4 mg/dL (0.00-1.00); Blood Urea Nitrogen 10 mg/dL (7-18); CRP 12.7 mg/dL (0.0-0.9); Calcium 8.7 mg/dL (8.5-10.1); Carbon Dioxide 24 mmol/L (21-32); Chloride 103 mmol/L (98-108); Estimated Glomerular Filt Rate > 60; Glucose 170 mg/dL (70-99); Osmolality Calculated 283 mOsm/kg (285-295); Potassium 3.9 mmol/L (3.5-5.1); Sodium 135 mmol/L (136-145); Total Protein 7.4 g/dL (6.4-8.2)
[2021-09-12] MEDS: ceFAZolin 2 GM/D5W 50 ML 2 GM/50 ML BAG IVPB (12:23)
[2021-09-12 12:30] LABS: Erythrocyte Sedimentation Rate 46 mm/hr (0-15)
[2021-09-12 15:12] VITALS: BP 129/74; PULSE 83; RESP 17; TEMP 36.4; O2SAT 100
== END 2021-09-12 15:14 | disposition home or self-care (01) ==
PROVIDERS: Emergency Provider Emergency Medicine; PCP Family Medicine
DX: L03.311 Cellulitis of abdominal wall (principal); T81.31XA Disruption of external operation (surgical) wound, not elsewhere classified, initial encounter
CPT/HCPCS: 36415; 74177; 80053; 81001; 83605; 85025; 85652; 86140; 87070; 87077; 87086; 87088; 87147; 87205; 96365; 99284; J0690; Q9967

== ENCOUNTER 2022-12-07 09:12 | Emergency (ER) | payer OTHER, SELFPAY ==
--- NOTE | ~2022-12-07 | XR_ITS ---
XR chest 2V DATE: 12/07/2022 10:01 INDICATION: Cough TECHNIQUE: 2 views COMPARISON: 07/26/2018 portable AP chest FINDINGS: There are patchy infiltrates overlying the left suprahilar area, and bilateral lower lobe i nfiltrates.. Normal heart size. No hilar or mediastinal enlargement is noted. No pulmonary vascular congestion, pleural effusion or pneumothorax. The skeletal structures are unremarkable. IMPRESSION: Bilateral multifocal infiltrates likely due to pneumonia Reviewed, dictated and finalized at location L.
[2022-12-07 09:14] VITALS: BP 136/67; PULSE 94; RESP 18; TEMP 36.7; O2SAT 100
[2022-12-07 09:25] VITALS: BP 169/69; PULSE 94; RESP 15; O2SAT 99
[2022-12-07 09:30] VITALS: O2SAT 100
--- NOTE | 2022-12-07 09:34 | ED.GENADULT ---
HPI - General Adult General Chief complaint: Shortness of Breath/Dyspnea Stated complaint: chest pain, dyspnea x 5 days Time Seen by Provider: 12/07/22 09:18 History of Present Illness HPI narrative: Dennise Strong is a 37 y/o female who presents with reports of having a non productive cough for about 5 days that seems to have become worse over the past 2 days. She reports feeling intermittent chills, no known fevers. Denies chest pain. Reports feeling soreness in her abdomen form coughing so much Denies sore throat/ ear pain/ Related Data Home Medications Medication Instructions Recorded Confirmed buspirone 7.5 mg tablet mg 09/17/20 ferrous sulfate 325 mg (65 mg mg 09/17/20 iron) tablet (FeroSul) metformin 500 mg tablet mg 09/17/20 topiramate 50 mg tablet 09/17/20 hydrocodone 5 mg-acetaminophen 325 tablet PRN Pain 08/31/21 mg tablet tramadol 50 mg tablet tablet PRN Pain 08/31/21 Allergies Allergy/AdvReac Type Severity Reaction Status Date / Time povidone-iodine Allergy Rash Verified 12/07/22 09:26 [From Betadine] hydromorphone [From Dilaudid] AdvReac Vomiting Verified 12/07/22 09:26 Review of Systems Review of Systems: CONSTITUTIONAL: Denies fever, chills, or sweats. EYES: Denies visual changes, redness, or discharge. ENT: Denies rhinorrhea, congestion, sore throat, or otalgia. CARDIOVASCULAR: Denies chest pain, palpitations, or edema. RESPIRATORY:Reports cough non productive for about 4-5 days GASTROINTESTINAL: Denies abdominal pain, nausea, vomiting, or diarrhea. GENITOURINARY: Denies dysuria or hematuria. SKIN: Denies rash or itching. MUSCULOSKELETAL: Denies back pain, joint pain, or myalgia. NEUROLOGIC: Denies headache, numbness, dizziness, or weakness. PSYCHIATRIC: Denies anxiety or depression. [facility] Past Medical History Medical History Depression Diabetes Surgical History Surgical History H/O gastric bypass 2017 History of hysterectomy Social History Social History Smoking status: Never smoker Exam Narrative: GENERAL: Well-appearing, well-nourished, and in no acute distress. HEAD: Normocephalic, atraumatic. EYES: PERRLA and EOMI. ENT: Nares clear, no rhinorrhea or epistaxis. Mucous membranes moist. Oropharynx without tonsillar hypertrophy exudate or other lesions. Bilateral TMs pearly gorman nonbulging NECK: Supple. No adenopathy or masses. No carotid bruits or JVD CHEST: Clear to auscultation. No respiratory distress. No wheezes rales or rhonchi HEART: Regular rate and rhythm. No murmur heard. Normal peripheral pulses. ABDOMEN: Soft, nontender, nondistended, normal active bowel sounds. EXTREMITIES: Normal range of motion. No edema. SKIN: Warm, dry, no rash. NEURO: No focal deficits. Alert and oriented x3. PSYCH: Normal mood and affect. Course Vital Signs Vital signs: Vital Signs Temperature 36.7 C 12/07/22 09:14 Pulse Rate 94 12/07/22 09:14 Respiratory Rate 18 12/07/22 09:14 Blood Pressure 136/67 12/07/22 09:14 Pulse Oximetry 100 12/07/22 09:14 Oxygen Delivery Room Air 12/07/22 09:14 Temperature 36.7 C 12/07/22 09:14 Pulse Rate 94 12/07/22 09:25 Respiratory Rate 15 12/07/22 09:25 Blood Pressure 169/69 H 12/07/22 09:25 Pulse Oximetry 99 12/07/22 09:25 Oxygen Delivery Room Air 12/07/22 09:14 Medical Decision Making [facility] Narrative Medical decision making narrative: On exam pt is calm/ no acute distress RR even unlabored/ sating 99-100 on RA Reports of non productive cough and intermittent rattling in her chest Lung sounds are clear No chest pain, she reports of having some abdominal soreness form coughing the past 4-5 days Concern for URI/ Pneumonia/ Bronchitis/ Covid Chest x ray is showing pneumonia- Labs are stable, chronic anemi
[2022-12-07 09:49] LABS: Basophils Percent Auto 0.4 % (0.2-1.2); Eosinophils Absolute Auto 0.1 K/mm3 (0-0.3); Eosinophils Percent Auto 1.5 % (0-4.4); Hematocrit 29.5 % (37.0-47.0); Hemoglobin 8.2 g/dL (12.0-15.0); Immature Granulocyte Absolute 0.03 K/mm3 (0.00-0.031); Immature Granulocyte Percent A 0.4 % (0-0.5); Lymphocytes Absolute Auto 1.34 K/mm3 (0.9-3.2); Lymphocytes Percent Auto 16.8 % (18.3-44.2); Mean Corpuscular HGB Conc 27.8 g/dl (32-36); Mean Corpuscular Hemoglobin 19.4 pg (26-34); Mean Corpuscular Volume 69.7 fl (80-100); Mean Platelet Volume 10.1 fl (7.4-10.4); Monocytes Absolute Auto 0.8 K/mm3 (0.1-0.6); Monocytes Percent Auto 10.6 % (2.6-8.5); Neutrophils Absolute Auto 5.6 K/mm3 (1.3-6.7); Neutrophils Percent Auto 70.3 % (45.5-73.1); Platelet Count Result 341 k/mm3 (150-375); Red Blood Count 4.23 M/mm3 (4.2-5.4); Red Cell Distribution Width 18.9 % (11.5-14.5)
[2022-12-07 10:01] LABS: Alanine Aminotransferase 20 U/L (6-35); Albumin Level 4.1 g/dL (3.5-5.1); Alkaline Phosphatase 76 U/L (38-126); Anion Gap 9 mmol/L (8-16); Aspartate Amino Transferase 30 U/L (14-36); Bilirubin,Total 0.4 mg/dL (0.2-1.3); Blood Urea Nitrogen 7 mg/dL (7-17); Calcium 8.8 mg/dL (8.4-10.2); Carbon Dioxide 24 mmol/L (22-30); Chloride 102 mmol/L (98-107); Estimated CRCL calculation 143 ml/min; Estimated Glomerular Filt Rate > 60; Glucose 182 mg/dL (65-110); Potassium 3.7 mmol/L (3.4-5.0); Sodium 135 mmol/L (137-145)
[2022-12-07] MEDS: BENZONATATE 100 MG CAPSULE 200 MG PO (10:08)
[2022-12-07] MEDS: KETOROLAC 15 MG/ML VIAL (*BKC) IV PUSH (10:08)
[2022-12-07] MEDS: SODIUM CHLORIDE 0.9% IV 500 ML 999 ML IV CONT (10:08)
[2022-12-07 10:15] VITALS: PULSE 87; RESP 20
[2022-12-07 10:19] LABS: Anisocytosis 1+ (NORMAL); Hypochromasia 2+ (NORMAL); Ovalocytes 1+ (NORMAL); Schistocytes None Seen (NORMAL)
[2022-12-07 10:23] LABS: Influenza A QL RT-PCR Negative (Negative); Influenza B QL RT-PCR Negative (Negative); RSV RNA, RT-PCR Negative (Negative); SARS-CoV-2 RNA PCR Negative (Negative)
[2022-12-07] MEDS: AMOXICILLIN/CLAVULANATE K 875-125 MG TAB 1 TABLET PO (11:12)
[2022-12-07] MEDS: guaiFENesin/DEXTROMETHORPHAN 10 ML UDC PO (11:12)
[2022-12-07] MEDS: AZITHROMYCIN 250 MG TABLET 500 MG PO (11:12)
[2022-12-07 11:14] VITALS: BP 123/72; PULSE 86; RESP 18; O2SAT 98
== END 2022-12-07 11:26 | disposition home or self-care (01) ==
PROVIDERS: Emergency Provider Nurse Practitioner Family; PCP Family Medicine
DX: J18.9 Pneumonia, unspecified organism (principal); Z20.822 Contact with and (suspected) exposure to COVID-19; E11.9 Type 2 diabetes mellitus without complications; F32.A Depression, unspecified; Z98.84 Bariatric surgery status; Z90.710 Acquired absence of both cervix and uterus; Z79.84 Long term (current) use of oral hypoglycemic drugs
CPT/HCPCS: 36415; 71046; 80053; 85025; 87637; 96361; 96374; 99284; A9270; J1885; J7040

== ENCOUNTER 2023-09-21 06:43 | Emergency (ER) | payer SELFPAY ==
[2023-09-21 06:51] VITALS: BP 140/90; PULSE 78; RESP 18; TEMP 36.6; O2SAT 100
--- NOTE | 2023-09-21 07:26 | ED.SKABFB ---
HPI - Skin/Abscess/Foreign Bdy General Chief complaint: Skin/Abscess/Foreign Body Stated complaint: two massive knots behind my ears Time Seen by Provider: 09/21/23 06:59 Source: patient Mode of arrival: ambulatory Limitations: no limitations History of Present Illness HPI narrative: Patient presents with complaint of knots behind her ears. She noticed it on the right on Tuesday which then improved and then recurred. The left started bothering her last night. She denies any hearing changes, fever, tinnitus, sore throat, cough, or congestion. She states the right side itches slightly. No history of recurrent ear infections. She says she is having some slight difficulty swallowing. Related Data Home Medications Medication Instructions Recorded Confirmed buspirone 7.5 mg tablet mg 09/17/20 ferrous sulfate 325 mg (65 mg mg 09/17/20 iron) tablet (FeroSul) metformin 500 mg tablet mg 09/17/20 topiramate 50 mg tablet 09/17/20 hydrocodone 5 mg-acetaminophen 325 tablet PRN Pain 08/31/21 mg tablet tramadol 50 mg tablet tablet PRN Pain 08/31/21 Allergies Allergy/AdvReac Type Severity Reaction Status Date / Time povidone-iodine Allergy Rash Verified 09/21/23 08:45 [From Betadine] hydromorphone [From Dilaudid] AdvReac Vomiting Verified 09/21/23 08:45 PMFSH Past Medical History Medical History Depression Diabetes Surgical History Surgical History H/O gastric bypass 2017 History of hysterectomy Social History Social History Smoking status: Never smoker Exam Narrative: GENERAL: Well-appearing, well-nourished, and in no acute distress. HEAD: Normocephalic, atraumatic. EYES: Non injected, non icteric ENT: Nares clear, no rhinorrhea or epistaxis. Slight effusion behind the tympanic membrane on the left without bulging or erythema. Right tympanic membrane is easily visualized without erythema or bulging or effusion. Patient does have edema located below/behind her ears bilaterally the right greater than left. No abnormalities of the pinna. Mallampati 3 limits full view but with maneuvers can visualize midlien uvula. No tenderness with manipulation of the pinna which is not distorted.. NECK: Supple. CHEST: Speaking in full sentences. No respiratory distress. HEART: Regular rate and rhythm. . ABDOMEN: Soft, nondistended. EXTREMITIES: Normal range of motion. No edema. SKIN: Warm, dry, no rash. NEURO: No focal deficits or mary palsies. Alert and oriented x3. Tongue protrudes midline with no deviation. PSYCH: Normal mood and affect. Course Vital Signs Vital signs: Vital Signs Temperature 97.9 F 09/21/23 06:51 Pulse Rate 78 09/21/23 06:51 Respiratory Rate 18 09/21/23 06:51 Blood Pressure 140/90 09/21/23 06:51 Pulse Oximetry 100 09/21/23 06:51 Oxygen Delivery Room Air 09/21/23 06:51 Temperature 97.9 F 09/21/23 06:51 Pulse Rate 78 09/21/23 06:51 Respiratory Rate 18 09/21/23 06:51 Blood Pressure 140/90 09/21/23 06:51 Pulse Oximetry 100 09/21/23 06:51 Oxygen Delivery Room Air 09/21/23 06:51 MDM - Skin/Abscess/Foreign Bdy MDM Narrative Medical decision making narrative: Patient presents with what she describes as knots behind her ears. In the emergency department they are afebrile with vital signs within normal limits. DIFFERENTIAL DIAGNOSIS Considered mastoiditis based on initial report however no pain and swelling in this area. Rather, this appears to be postauricular and tonsillar lymphadenopathy and, given this, this does suggest infection versus inflammation though likely of viral over a bacterial process. Will obtain 4Plex, STrep and mono test. These are negative. Discharged home in stable condition. Lab Data Attestation: I reviewed the patient's lab resul
[2023-09-21 08:13] LABS: Monoscreen Negative (Negative); Negative Monotest Control Negative (Negative); Positive Monotest Control Positive (Positive); Strep Group A RT-PCR NOT DETECTED (Negative)
[2023-09-21 08:26] LABS: Influenza A QL RT-PCR Negative (Negative); Influenza B QL RT-PCR Negative (Negative); RSV RNA, RT-PCR Negative (Negative); SARS-CoV-2 RNA PCR Negative (Negative)
[2023-09-21] MEDS: KETOROLAC 30 MG/ML VIAL (*BKC) 15 MG IM (08:45)
== END 2023-09-21 09:01 | disposition home or self-care (01) ==
PROVIDERS: Emergency Provider Student in an Organized Health Care Education/Training Program; PCP Family Medicine
DX: R59.9 Enlarged lymph nodes, unspecified (principal); Z20.822 Contact with and (suspected) exposure to COVID-19; E11.9 Type 2 diabetes mellitus without complications; F32.A Depression, unspecified; Z98.84 Bariatric surgery status; Z90.710 Acquired absence of both cervix and uterus; Z79.899 Other long term (current) drug therapy; Z79.84 Long term (current) use of oral hypoglycemic drugs
CPT/HCPCS: 36415; 86308; 87637; 87651; 96372; 99283; J1885